=== PATIENT | male | born 1970 | race Caucasian/White ===

== ENCOUNTER 2017-05-14 19:13 | Emergency (ER) | payer BC ==
--- NOTE | 2017-05-14 19:40 | ERPHSYRPT ---
- History of Present Illness Time Seen by Provider: 05/14/17 19:30 Source: patient Exam Limitations: no limitations Patient Subjective Stated Complaint: bilat post flank pain for this weekend. pain with urination and small frequent urination. denies n/v/d. pain earlier caused diaphoresis but no diaphoresis at present. pain equal to bilat flank ' kidney area' pt states last kidney infection was 3 months ago. Triage Nursing Assessment: abd round. bs x4. generalized fatigue. Physician History: FOR THE PAST 3 DAYS PT HAS HAD DYSURIA, DIAPHORESIS, LOW BACK PAIN, BILATERAL FLANK PAIN AND A SORE THROAT. Allergies/Adverse Reactions: No Known Drug Allergies Allergy (Unverified 05/14/17 19:36) Home Medications: Lisinopril 20 mg [Zestril 20 MG] 20 mg PO DAILY 05/14/17 [History] Metformin HCl 500 mg [Glucophage 500 MG] 1,000 mg PO DAILY 05/14/17 [ History] Hx Tetanus, Diphtheria Vaccination/Date Given: Yes Hx Influenza Vaccination/Date Given: No Hx Pneumococcal Vaccination/Date Given: No Immunizations Up to Date: Yes - Review of Systems Ears, Nose, & Throat: Throat Pain Genitourinary Symptoms: Dysuria Musculoskeletal: Back Pain (LOW) Endocrine: Excessive Sweating All Other Systems: Reviewed and Negative - Past Medical History Pertinent Past Medical History: Yes Cardiac History: Hypertension Endocrine Medical History: Diabetes Type II - Past Surgical History Past Surgical History: No - Social History Smoking Status: Current every day smoker Exposure to second hand smoke: Yes Drug Use: none Patient Lives Alone: No - Nursing Vital Signs Nursing Vital Signs: Initial Vital Signs Temperature 98.1 F 05/14/17 19:22 Pulse Rate 80 05/14/17 19:22 Respiratory Rate 18 05/14/17 19:22 Blood Pressure 154/99 05/14/17 19:22 Pain Scale Pain Intensity 6 - Physical Exam General Appearance: alert Eye Exam: PERRL/EOMI Ears, Nose, Throat Exam: pharynx normal, moist mucous membranes Neck Exam: normal inspection Respiratory Exam: lungs clear Cardiovascular Exam: normal heart sounds Gastrointestinal/Abdomen Exam: soft, normal bowel sounds, tenderness (MILD SUPRAPUBIC TENDERNESS), No guarding Back Exam: normal range of motion Extremity Exam: normal inspection, No pedal edema Neurologic Exam: alert, cooperative Skin Exam: warm, dry - Course Nursing assessment & vital signs reviewed: Yes Ordered Tests: Active Orders 24 hr Category Date Time Status CULTURE, THROAT Stat Lab 05/14/17 20:56 Received STREP SCREEN-BETA A Stat Lab 05/14/17 20:56 Completed UA W/RFX UR CULTURE Stat Lab 05/14/17 20:15 Completed Lab/Rad Data: Laboratory Results 05/14/17 05/14/17 05/14/17 Range/Units 20:56 20:56 20:15 Ur Collection Type CCMS Urine Color YELLOW (YELLOW) Urine Appearance CLEAR (CLEAR) Urine pH 7.0 (5-6) Ur Specific [place] 1.010 (1.005-1.025) Urine Protein NEGATIVE (Negative) Urine Ketones NEGATIVE (NEGATIVE) Urine Blood NEGATIVE (0-5) Johnny/ul Urine Nitrite NEGATIVE (NEGATIVE) Urine Bilirubin NEGATIVE (NEGATIVE) Urine Urobilinogen NORMAL (0-1) mg/dL Ur Leukocyte Esterase NEGATIVE (NEGATIVE) Urine Culture Reflexed NO (NO) Urine Glucose NEGATIVE (NEGATIVE) mg/dL Influenza Type A Ag NEGATIVE (NEGATIVE) Influenza Type B Ag NEGATIVE (NEGATIVE) RSV (PCR) NEGATIVE (Negative) Streptococcus Screen NEGATIVE (Negative) Specimen Received 05-14-175 - Progress Progress Note: 05/14/17 20:39 PT REFUSES ANY BLOOD WORK, IV, CT ABDOMEN/PELVIS. PT WILL GO HOME AND SEE HIS DOCTOR TOMORROW. - Departure Time of Disposition: 21:47 Departure Disposition: Home Clinical Impression: DYSURIA, FLANK/LOW BACK PAIN, SORE THROAT Condition: Stable Critical Care Time: No Referrals: FAY WARD MD [Primary Care Provider] - Instructions: Dysuria, Adult (DC) Additional Instructions: FOLLOW UP WITH PRIVATE DOCTOR TOMORROW.
[2017-05-14 20:35] LABS: Appearance CLEAR (CLEAR); Bilirubin NEGATIVE (NEGATIVE); Blood NEGATIVE Ery/ul (0-5); Glucose NEGATIVE (NEGATIVE); Ketones NEGATIVE (NEGATIVE); Leukocyte Esterase NEGATIVE (NEGATIVE); Nitrite NEGATIVE (NEGATIVE); Protein,Urine Dip NEGATIVE (Negative); Urobilinogen NORMAL mg/dL (0-1)
[2017-05-14 21:30] LABS: INFLUENZA A NEGATIVE (NEGATIVE); INFLUENZA B NEGATIVE (NEGATIVE); RESPIRATORY SYNCTIAL VIRUS NEGATIVE (Negative)
[2017-05-14 22:10] VITALS: BP 150/93; PULSE 82; O2SAT 96
== END 2017-05-14 22:11 | disposition home or self-care (01) ==
LOC: ED 19:13
DX: R30.0 Dysuria (principal); R10.9 Unspecified abdominal pain; M54.5 Low back pain; J02.9 Acute pharyngitis, unspecified; I10 Essential (primary) hypertension; E11.9 Type 2 diabetes mellitus without complications; Z72.0 Tobacco use; R61 Generalized hyperhidrosis
CPT/HCPCS: 81002; 87070; 87430; 87631; 99283